=== PATIENT | male | born 1950 | race Caucasian/White ===

== ENCOUNTER → 2017-04-20 | Outpatient (CLI) | payer MEDICARE | END | disposition home or self-care (01) | LOC: PCVCCLINIC 10:48 | PROVIDERS: ATTEND Internal Medicine Cardiovascular Disease | DX: I25.10 Atherosclerotic heart disease of native coronary artery without angina pectoris (principal); E78.4 Other hyperlipidemia; I34.0 Nonrheumatic mitral (valve) insufficiency; R93.1 Abnormal findings on diagnostic imaging of heart and coronary circulation; J45.909 Unspecified asthma, uncomplicated; E03.9 Hypothyroidism, unspecified; I44.0 Atrioventricular block, first degree | CPT/HCPCS: 36415; 93005; G0463 ==

== ENCOUNTER → 2017-08-03 | Outpatient (CLI) | payer MEDICARE | END | disposition home or self-care (01) | LOC: PCVCCLINIC 09:42 | PROVIDERS: ATTEND Internal Medicine Cardiovascular Disease | DX: E78.5 Hyperlipidemia, unspecified (principal) | CPT/HCPCS: 36415 ==

== ENCOUNTER → 2018-08-16 | Outpatient (CLI) | payer MEDICARE ==
--- NOTE | 2018-08-16 10:19 | PCVCIMAG ---
APPROVED REPORT Study performed: 08/16/2018 09:13:15 Exam: Stress Echocardiogram Indication: elevated calcium score, fam hx CAD, HLP Patient Location: Echo lab Stress Nurse: Jackie Lugo RN Status: routine Ht: 5 ft 11 in HR: 58 bpm BP: 152/84 mmHg Rhythm: Bradycardia Procedure The patient underwent an Exercise Stress Test using the Francisco Javier Protocol. Blood pressure, heart rate, and EKG were monitored. An Echocardiogram was performed by natural resource technician in four stages in quad fashion. At peak stress, four selected images were obtained and placed side by side with resting images for comparison. Stress Test Details Stress Test: Exercise stress testing was performed using a Francisco Javier protocol. HR Resting HR: 58 bpmMax Heart Rate (APMHR): 151 bpm Max HR Achieved: 137 bpmTarget HR (85% APMHR): 128 bpm % of APMHR: 90 Recovery HR: 74 bpm HR response to stress: Normal HR response to stress BP Resting BP: 152/84 mmHg Max BP: 198/80 mmHg Recovery BP: 132/78 mmHg BP response to stress: Normal blood pressure response to stress. ECG Resting ECG: Sinus Bradycardia Stress ECG: Sinus Rhythm ST Change: Non-ischemic Arrhythmia: occasional isolated PVCs Recovery ECG: Sinus Rhythm Recovery ST Change: Normal Recovery Arrhythmia: None Clinical Reason for Termination: Maximal effort, Dyspnea Stress Symptoms: Dyspnea- exercise induced asthma Exercise duration: 12 min sec Highest Stage Achieved: Stage 4: 4.2 mph at 16% grade. Exercise capacity: 13.4 METs Overall Exercise Capacity for Age: Excellent Scale: Active Angina Score: None Pre-Stress Echo The resting Echocardiogram showed normal left ventricular contractility with an estimated Ejection Fraction of about >55%. Normal wall motion in all segments on baseline images. Post-Stress Echo The stress Echocardiogram showed normal left ventricular contractility with an estimated Ejection Fraction of about 65%. Normal augmentation of wall motion in all segments on post stress images. Clinical No clinical or ECG evidence for ischemia. Conclusion Clinical Response: Non-ischemic Exercise Capacity: Above average Stress ECG Response: Non-ischemic Stress Echo Images: Non-ischemic The left ventricle is normal in size and wall thickness in both the rest and stress images. Other Information Study Quality: Adequate <Conclusion> The left ventricle is normal in size and wall thickness in both the rest and stress images.
== END | disposition home or self-care (01) ==
LOC: PCVCIMAG 10:29
PROVIDERS: ATTEND Internal Medicine Cardiovascular Disease
DX: I25.10 Atherosclerotic heart disease of native coronary artery without angina pectoris (principal); E78.00 Pure hypercholesterolemia, unspecified; I34.0 Nonrheumatic mitral (valve) insufficiency; J45.909 Unspecified asthma, uncomplicated; E03.9 Hypothyroidism, unspecified; R93.1 Abnormal findings on diagnostic imaging of heart and coronary circulation; E78.5 Hyperlipidemia, unspecified
CPT/HCPCS: 36415; 80061; 93005; 93325; 93351; G0463

== ENCOUNTER → 2019-08-13 | Outpatient (CLI) | payer MEDICARE ==
--- NOTE | 2019-08-13 08:49 | PCVCIMAG ---
APPROVED REPORT Study performed: 08/13/2019 07:52:22 EXAM: Comprehensive 2D, Doppler, and color-flow Echocardiogram Patient Location: Echo lab Status: routine BSA: 1.96 HR: 65 bpmBP: 152/82 mmHg Rhythm: NSR Other Information Study Quality: Adequate Risk Factors: Cardiac Risk Factors: Hyperlipidemia Indications CAD mitral regurgitation 2D Dimensions IVSd: 12.58 (7-11mm) LVDd: 37.93 mm PWd: 13.08 (7-11mm)Ascending Ao: 36.87 (22-36mm) LVDs: 29.78 (25-40mm) Left Atrium: 37.87 (27-40mm) Aortic Root: 32.87 mm LV Single Plane 4CH: 62.02 % LV Single Plane 2CH: 60.39 % Biplane EF: 61.7 % Volumes Left Atrial Volume (Systole) Single Plane 4CH: 56.02 mLSingle Plane 2CH: 99.74 mL LA ESV Index: 39.00 mL/m2 Aortic Valve AoV Peak Steven.: 1.73 m/s AO Peak Gr.: 11.96 mmHgLVOT Max P.61 mmHg LVOT Max V: 1.38 m/s AI Vmax: 5.15 m/s AI [place]: 2.82 m/s2 AI PHT: 529.95 ms Mitral Valve E/A Ratio: 1.0 MV Decel. Time: 276.87 ms MV E Max Steven.: 0.48 m/s MV A Steven.: 0.50 m/s IVRT: 107.27 ms Pulmonary Valve PV Peak Steven.: 1.25 m/sPV Peak Gr.: 6.25 mmHg Pulmonary Vein P Vein S: 0.38 m/sP Vein A: 0.51 m/s P Vein D: 0.58 m/sP Vein A Dur.: 134.9 msec P Vein S/D Ratio: 0.66 Tricuspid Valve TR Peak Steven.: 2.45 m/s TR Peak Gr.: 23.93 mmHg Left Ventricle The left ventricle is normal size. There is normal LV segmental wall motion. Mild concentric left ventricular hypertrophy. Left ventricular systolic function is normal. The left ventricular ejection fraction is within the normal range. LVEF is 60-65%. Grade I - abnormal relaxation pattern. Right Ventricle The right ventricle is normal size. The right ventricular systolic function is normal. Atria Left atrium is mildly dilated. Right atrium is mildly dilated. Aortic Valve The aortic valve is normal in structure. Mild aortic regurgitation. There is no aortic valvular stenosis. Mitral Valve The mitral valve is normal in structure. Mild mitral regurgitation. No evidence of mitral valve stenosis. Tricuspid Valve The tricuspid valve is normal in structure. Mild tricuspid regurgitation with PAP of 31 mmHg. Pulmonic Valve The pulmonary valve is normal in structure. Trace pulmonic regurgitation. Great Vessels The aortic root is normal in size. IVC is normal in size and collapses >50% with inspiration. Pericardium There is no pericardial effusion. There is no pleural effusion. <Conclusion> The left ventricle is normal size. Mild concentric left ventricular hypertrophy. Left ventricular systolic function is normal. Grade I - abnormal relaxation pattern. The right ventricle is normal size. Left atrium is mildly dilated. Mild aortic regurgitation. Mild mitral regurgitation. Mild tricuspid regurgitation with PAP of 31 mmHg.
== END | disposition home or self-care (01) ==
LOC: PCVCIMAG 08:00
PROVIDERS: ATTEND Internal Medicine Cardiovascular Disease
DX: I08.3 Combined rheumatic disorders of mitral, aortic and tricuspid valves (principal); E78.49 Other hyperlipidemia; I25.10 Atherosclerotic heart disease of native coronary artery without angina pectoris; I11.9 Hypertensive heart disease without heart failure; E78.00 Pure hypercholesterolemia, unspecified; E78.5 Hyperlipidemia, unspecified; E03.9 Hypothyroidism, unspecified; J45.909 Unspecified asthma, uncomplicated; Z79.899 Other long term (current) drug therapy
CPT/HCPCS: 93005; 93306; G0463